=== PATIENT | male | born 1975 | race Two or more races ===

== ENCOUNTER 2019-07-14 20:10 | Emergency (ER) | payer SELFPAY ==
[~2019-07-14] VITALS: Ht 177.8 cm; Wt 117.9 kg
[2019-07-14 20:10] VITALS: BP 153/97
== END 2019-07-14 23:35 | disposition home or self-care (01) ==
LOC: ER 20:15
DX: M54.2 Cervicalgia (principal); M62.838 Other muscle spasm; V43.52XA Car driver injured in collision with other type car in traffic accident, initial encounter; Y93.89 Activity, other specified; Y99.8 Other external cause status; Y92.410 Unspecified street and highway as the place of occurrence of the external cause
CPT/HCPCS: 72125